=== PATIENT | male | born 1950 | race Two or more races ===

== ENCOUNTER → 2025-02-22 | Outpatient (CLI) | payer MEDICARE, SELFPAY ==
--- NOTE | 2025-02-22 13:03 | XR_ITS ---
Examination: Leg length study, scanogram Exam date and time: February 22, 2025 1432 hours INDICATIONS: Leg length discrepancy this week FINDINGS: The left leg is 10 mm shorter than the right leg, the difference occurring with a shorter left femur Significant osteoarthritis and narrowing medial joint space right knee IMPRESSION: The left leg is 10 mm shorter than the right leg, the difference occurring with the shorter left femur length
== END | disposition home or self-care (01) ==
PROVIDERS: Referring Provider Orthopaedic Surgery; Visit Provider Orthopaedic Surgery
DX: M89.252 Other disorders of bone development and growth, left femur (principal)
CPT/HCPCS: 77073